=== PATIENT | female | born 1980 | race African-American/Black ===

== ENCOUNTER → 2016-10-09 | Outpatient (CLI) | payer MEDICAID | LOC: RAD 08:12 | PROVIDERS: ATTEND Surgery | DX: R10.9 Unspecified abdominal pain (principal) | CPT/HCPCS: 74177 ==

== ENCOUNTER 2017-03-23 09:23 | Emergency (ER) | payer MEDICAID ==
[2017-03-23 09:28] VITALS: BP 149/82
--- NOTE | 2017-03-23 09:34 | ER Document Report ---
HPI - HPI Patient complains to provider of: Sore throat Onset: Other - Wednesday Onset/Duration: Gradual Pain Level: 4 Context: 37-year-old female complaining of sore throat the aches since Wednesday. No runny nose. Slight cough. No laryngitis. No chest pain or shortness of breath.. Associated Symptoms: None Exacerbated by: Other - Swallowing Relieved by: Denies Similar symptoms previously: No Recently seen / treated by doctor: No - ROS ROS below otherwise negative: Yes Systems Reviewed and Negative: Yes All other systems reviewed and negative - REPRODUCTIVE Reproductive: DENIES: : Past Medical History - General Information source: Patient - Social History Smoking Status: Never Smoker Frequency of alcohol use: None Drug Abuse: None Occupation: Unemployed Lives with: Family Family History: Reviewed & Not Pertinent Patient has suicidal ideation: No Patient has homicidal ideation: No - Medical History Medical History: Negative Renal/ Medical History: Denies: Hx Peritoneal Dialysis Past Surgical History: Reports: Hx Section - X1, Hx Hysterectomy - Immunizations Hx Diphtheria, Pertussis, Tetanus Vaccination: Yes Vertical Provider Document - CONSTITUTIONAL Agree With Documented VS: Yes Exam Limitations: No Limitations - INFECTION CONTROL TRAVEL OUTSIDE OF THE [place] IN LAST 30 DAYS: No - HEENT HEENT: Pharyngeal Erythema. negative: Conjuctival Injection, Tympanic Membrane Red, Tympanic Membrane Bulging Notes: bright red with exudative tonsils, no abscess - NECK Neck: Supple, Lymphadenopathy-Left - anterior, Lymphadenopathy-Right - anterior - RESPIRATORY Respiratory: Breath Sounds Normal, No Respiratory Distress O2 Sat by Pulse Oximetry: 96 - CARDIOVASCULAR Cardiovascular: Regular Rate, Regular Rhythm - GI/ABDOMEN Gastrointestinal: Abdomen Soft, Abdomen Non-Tender, No Organomegaly - MUSCULOSKELETAL/EXTREMETIES Musculoskeletal/Extremeties: MAEW, FROM - NEURO Level of Consciousness: Awake, Alert, Appropriate - DERM Integumentary: Warm, Dry, No Rash Course - Vital Signs Vital signs: Temp Pulse Resp BP Pulse Ox 98.1 F 101 H 15 149/82 H 96 03/23/17 09:26 03/23/17 09:26 03/23/17 09:26 03/23/17 09:26 03/23/17 09:26 Discharge - Discharge Clinical Impression: Exudative tonsillitis Condition: Good Disposition: HOME, SELF-CARE Instructions: Tonsillitis (OM), Penicillin V K (OM), Use of [id number] Ibuprofen ([facility]) Additional Instructions: get liquid motrin over the counter plenty of fluids finish the antibioitcs even if you feel better. to er if worse Please complete the patient satisfaction survey if you get one, and return it.. If you do not receive a survey, then you can go to the [facility] website, [email or web address] and place your comments about your very good care. Thank you very much. It was a pleasure being your medical provider today. Prescriptions: Penicillin V Potassium [Penicillin Vk 500 mg Tablet] 500 mg PO QID #40 tablet
[2017-03-23] MEDS ORDERED: IBUPROFEN SUSP 100 MG/5 ML ORAL SYRINGE PO ONE (09:46)
[2017-03-23] MEDS ORDERED: PENICILLIN V POTASSIUM 500 MG TABLET PO ONE (09:46)
== END 2017-03-23 10:18 | disposition home or self-care (01) ==
LOC: ER 09:23
DX: J03.90 Acute tonsillitis, unspecified (principal); R05 Cough
CPT/HCPCS: 99282; J3490 ×2